=== PATIENT | male | born 1955 | race Caucasian/White ===

== ENCOUNTER 2016-10-22 09:24 | Emergency (ER) ==
[2016-10-22 09:44] VITALS: BP 183/87
--- NOTE | 2016-10-22 10:36 | PROVIDER DOCUMENTATION ---
HPI-Respiratory General - General Chief Complaint: Cold Symptoms Stated Complaint: COUGHING,CONGESTED,CHILLS Time Seen by Provider: 10/22/16 09:55 Source: patient Allergies/Adverse Reactions: Patient Allergies Allergy/AdvReac Type Severity Reaction Status Date / Time Penicillins Allergy Mild RASH Verified 10/22/16 09:59 Home Medications: Albuterol Sulfate [Proair Hfa] 8.5 gm IH DAILY 10/09/13 Fluticasone/Salmet 250/50 INH [Advair 250/50 Diskus] 1 puff INH RTBID 10/09/13 Gabapentin [Neurontin] 800 mg PO TID 10/09/13 Lisinopril/Hydrochlorothiazide [Lisinopril-Hctz 20-12.5 mg Tab] 1 each PO DAILY 10/09/13 Metformin [Glucophage] 500 mg PO DAILY 02/08/15 - History of Present Illness-Resp Nature of Presenting Problem: This pt presents today c complaints of ear ache X 3 weeks and nonproductive cough X 1 week. He reports that he has coughed so much he is having chest wall pain which is worsened c deep inspiration. He states it feels "like a hot air sampling and monitoring my side." He is unsure if he has had any fever. No other issues or complaints. Quality of Pain: reports: aching, sharp Severity in ED: reports: mild Onset/Duration: reports: other (see hpi) Timing: reports: still present Cough Quality/Degree: reports: mild, dry cough Episode Frequency: chronic episodes Modifying Factors: improves with: exertion, coughing Associated Symptoms: reports: cough, earache, flu-like symptoms, muscle/ bodyaches, nasal congestion, nasal drainage, sinus pain Similar Symptoms Previously?: Yes Recently seen or treated by another doctor?: No Review of Systems - Adult - REVIEW OF SYSTEMS - ADULT Constitutional: reports: arturoque. denies: chills, fever Eyes: reports: no symptoms reported. denies: discharge, dry eyes Ears, Nose, Mouth & Throat: reports: ear pain, sinus problem. denies: ear discharge, nose pain, loose teeth Cardiovascular: reports: no symptoms reported. denies: chest pain, edema Respiratory: reports: cough. denies: chronic cough, pleurisy, shortness of breath Gastrointestinal: reports: no symptoms reported. denies: abdominal pain, hematemesis Genitourinary: reports: no symptoms reported. denies: dysuria, discharge Musculoskeletal: reports: muscle aches. denies: bone pain, back pain Integumentary: reports: no symptoms reported. denies: hives, hair loss Neurological: reports: no symptoms reported. denies: ataxia, dizziness/vertigo Psychiatric: reports: no symptoms reported. denies: anxiety, anti-depressant use Endocrine: reports: no symptoms reported Hematologic/Lymphatic: reports: no symptoms reported Allergic/Immunologic: reports: no symptoms reported All Other Systems: Reviewed and Negative Past History - Adult - PAST MEDICAL HISTORY-ADULT Review of Records: reports: Old Records Reviewed, Nursing Assessment Review, Medications Reviewed, Social history reviewed & non-contributory. Major Childhood Illnesses: reports: denies history Cardiovascular: reports: HTN, HI Respiratory: reports: COPD Gastrointestinal: reports: denies history Obstetrical/Gynecological: reports: denies history Genitourinary: reports: denies history Musculoskeletal: reports: denies history Neurological: reports: denies history Psychiatric: reports: depression, suicide attempt Endocrine/Immune: reports: Diabetes Other Conditions: reports: denies history - PRIOR SURGERIES/PROCEDURES Surgical/Procedure History: reports: orthopedic (extremity) - PRIOR HOSPITALIZATIONS Prior Hospitalizations: reports: none - IMMUNIZATION STATUS Childhood Immunizations: UTD Flu Vaccine: See Nurse Assessment - FAMILY HISTORY Family History: reviewed, not pertinent, mental illness - SOCIAL HISTORY Smoking: cigarettes, greater than 1 pack/day Provider spent 3-5 mins advising pt. on dangers of tobacco.: Discussed manners to quit use, and f/u contacts for add'l counseling. Physical Exam-General - PHYSICAL EXAM-ADULT Initial Vital Signs Reviewed: Yes - CONSTITUTIONAL General Appearance: appears well, alert, no apparent distress. negative: lethargic, slow to respond - EYES Eyes: PERRL/EOMI, pink conjunctivae - HEAD, EARS, NOSE, MOUTH & THROAT HENMT: moist mucous membranes, normal ENT inspection, TM obscurred by cerumen ( left), frontal tenderness - NECK Neck: non-tender, full range of motion, normal inspection. negative: limited range of motion, lymphadenopathy, meningismus - RESPIRATORY Respiratory: chest non-tender, lungs clear, normal breath sounds, no respiratory distress, no accessory muscle use, pain on inspiration. negative: respiratory distress, decreased breath sounds, accessory muscle use, crackles, rales, rhonchi, decreased rate, increased rate - CARDIOVASCULAR Cardiovascular: normal peripheral pulses, regular rate, rhythm, no edema. negative: bradycardia, tachycardia - GASTROINTESTINAL (ABDOMEN) Abdominal Exam: normal bowel sounds, non tender, soft - LYMPHATIC Lymphatic: no adenopathy - MUSCULOSKELETAL Back Exam: normal inspection, no CVA tenderness, no vertebral tenderness Extremity: normal range of motion, non-tender, normal gait - SKIN Integumentary: normal color, normal turgor, warm/dry - NEUROLOGIC Neurologic: grossly normal, no motor/sensory deficits - PSYCHIATRIC Psych/Mental Status: normal mood/affect, normal thought content, normal thought process, oriented x 3 Progress - PLAN OF CARE/RESULTS Progress/Plan/Lab Results: Orders Category Date Time Status cxr [CHEST-2 VIEWS] [RAD] Stat Exams 10/22/16 09:44 Taken INFLUENZA SCREEN A/B Stat Lab 10/22/16 09:45 Completed Vital Signs Temp Pulse Resp BP Pulse Ox 10/22/16 09:41 98.2 F 75 20 183/87 100 Penicillins Allergy (Mild, Verified 10/22/16 09:59) RASH Albuterol Sulfate [Proair Hfa] 8.5 gm IH DAILY 10/09/13 Fluticasone/Salmet 250/50 INH [Advair 250/50 Diskus] 1 puff INH RTBID 10/09/13 Gabapentin [Neurontin] 800 mg PO TID 10/09/13 Lisinopril/Hydrochlorothiazide [Lisinopril-Hctz 20-12.5 mg Tab] 1 each PO DAILY 10/09/13 Metformin [Glucophage] 500 mg PO DAILY 02/08/15 - XRAY 1 XRAY Study: Chest XRAY Interpretation: COPD Departure - Departure Time of Disposition Order: 10:35 DIAGNOSIS: Bronchitis, Pleurisy Chronic sinus infection Qualifiers: Sinusitis location: pansinusitis Qualified Code(s): J32.4 - Chronic pansinusitis Disposition: HOME 01 Certified Medical Emergency: Urgent Condition: Good Additional Instructions: Take medication as prescribed. Quit smoking. Follow up with your primary care provider. ED Follow Up Instructions: You have been treated by a care provider in the Emergency Department. These instructions are being provided to you so you can have an understanding of how to care for yourself upon discharge. Upon discharge from the Emergency Department, you are responsible for making arrangements for follow-up care by a physician of your choice. Take all prescribed medications as directed. Return to the Emergency Department immediately for any new or worsening symptoms. You may call the Physician Referral phone number at [phone] to obtain a list of Physicians who are taking new patients. Prescriptions: Guaifenesin/D-Methorphan Hb/PE [Deconex Dmx Tablet] 1 each PO TID #30 tablet Cephalexin [Keflex] 500 mg PO Q6HR #28 capsule Meloxicam [Mobic] 7.5 mg PO DAILY PRN PRN #15 tablet PRN Reason: Pain Referrals: Edy Okeefe [Primary Care Provider] - Attestation - Physician/ Mid-level Attestation Patient care was provided by Mid-level provider (LINE SERVICE ATTENDANT/PA):: Yes Mid-level provider:: Adam Sky Mid-level documentation review:: The Mid-level provider documentation, treatment plan and medical decision making was reviewed by the physician who agrees with all treatment and medical decision making by the MLP.
--- NOTE | 2016-10-22 11:11 | Diag Imaging Result Document ---
PROCEDURE NAME: CHEST-2 VIEWS - 10/22/2016 TWO VIEWS OF THE CHEST: FINDINGS: There is COPD. The lungs are slightly more expanded than on the previous study of 06/03/2015. Otherwise, there has been no significant change. IMPRESSION: The possibility of exacerbation of COPD cannot be excluded.
== END 2016-10-22 10:42 | disposition home or self-care (01) ==
LOC: ED 09:24
DX: J40 Bronchitis, not specified as acute or chronic (principal); R09.1 Pleurisy; R05 Cough; R07.89 Other chest pain; R09.81 Nasal congestion; I25.2 Old myocardial infarction; I10 Essential (primary) hypertension; J44.9 Chronic obstructive pulmonary disease, unspecified; Z79.51 Long term (current) use of inhaled steroids; Z79.899 Other long term (current) drug therapy; Z79.84 Long term (current) use of oral hypoglycemic drugs; E11.9 Type 2 diabetes mellitus without complications; F17.210 Nicotine dependence, cigarettes, uncomplicated; Z71.6 Tobacco abuse counseling; H92.09 Otalgia, unspecified ear; J32.4 Chronic pansinusitis; R68.83 Chills (without fever)
CPT/HCPCS: 71020; 87804; 99283